=== PATIENT | male | born 1970 | race Caucasian/White ===

== ENCOUNTER 2025-08-03 12:20 | Emergency (ER) | payer OTHER, SELFPAY ==
[2025-08-03 12:22] VITALS: BP 198/101; PULSE 96; RESP 16; TEMP 36.8; O2SAT 97; BMI 35.7
--- NOTE | 2025-08-03 12:33 | EKG12_ITS ---
Test Reason : DIZZINESS Blood Pressure : */* mmHG Vent. Rate : 82 BPM Atrial Rate : 82 BPM P-R Int : 168 ms QRS Dur : 116 ms QT Int : 378 ms P-R-T Axes : 23 -42 37 degrees QTcB Int : 441 ms Normal sinus rhythm Left axis deviation Minimal voltage criteria for LVH, may be normal variant ( Meliton product ) Abnormal ECG Confirmed by NAIMA HU, NIYA ([id number]), state editor KATJA OSULLIVAN ([id number]) on 08/05/2025 10:31:59 AM Referred By: RENY Confirmed By: NIYA MCNAMARA MD
--- NOTE | 2025-08-03 12:35 | EX.ED.DYSGE1 ---
HPI History of Present Illness Chief Complaint: Dizziness Detail of Chief Complaint: Neck pain and dizziness Informant: patient Narrative Narrative: Patient presents to the emergency department complaining neck pain and dizziness that started about an hour ago. Patient states that he was at work and had just had lunch. He is speaking with somebody when he had sudden onset of pain in his left neck and trapezius area then he became lightheaded and flushed. Stated that he did not feel well. He did not have a syncopal episode. Pain is more achy currently. Lightheadedness is better. Patient was noted to be hypertensive on EMS arrival and states normally his blood pressure is 190/130 but he was over 200 systolic. Patient is on blood pressure medicine but he does not know the name of it. He denies chest pain or palpitations. PFSH PFSH Allergy/AdvReac Type Severity Reaction Status Date / Time meperidine (From Demerol) AdvReac VOMITING Verified 08/03/25 12:26 Social History Smoking Status: Never smoker ROS ROS ED ROS Narrative Lightheadedness Review of Systems ROS Unobtainable: other Constitutional Constitutional ED: Reports lethargy; Denies chills, fever(s), sweats or weight loss Eyes Eyes: Denies blurry vision, change in vision or diplopia ENT ENT ED: Denies rhinorrhea or sore throat Cardiovascular Cardiovascular: Denies chest pain, orthopnea or racing heartbeat Respiratory/Chest Respiratory/Chest: Denies cough, dyspnea, dyspnea on exertion, orthopnea or sputum Gastrointestinal Gastrointestinal: Denies abdominal pain, diarrhea, nausea or vomiting Genitourinary Genitourinary ED: Denies dysuria, hematuria or urinary frequency Musculoskeletal Musculoskeletal: Reports neck pain; Denies arthralgias, back pain or myalgias Integumentary Denies abscess, Abrasions or rash Neurologic Neurologic: Denies headache(s) or weakness Psychiatric Psychiatric: Denies anxiety, depression or suicidal thoughts Endocrine Endocrinology: Denies polydipsia, polyphagia or polyuria Hematologic/Lymphatic Hematologic/Lymphatic: Denies easy bleeding, easy bruising or lymphadenopathy Allergic/Immunologic Allergic/Immunologic ED: Denies mouth swelling, tongue swelling or urticaria EXAM Physical Exam Const Vital Signs: 08/03/25 12:22 08/03/25 13:27 Temperature 98.3 F Temperature Source Oral Pulse Rate 96 92 Respiratory Rate 16 14 Blood Pressure 198/101 H 152/92 H Blood Pressure Mean 133 112 Pulse Ox 97 95 Oxygen Delivery Method Room Air Room Air Positive well nourished and well developed General Appearance ED: well developed and NAD HEENT Reports TM's clear and moist mucous membranes normocephalic and atraumatic; Negative for trauma or tenderness Tympanic Membrane ED: Yes TM's clear Eyes PERRL and EOMs intact bilaterally General Eye ED: Negative for pale conjunctiva or scleral icterus Neck no lymphadenopathy, supple and no JVD General: Negative for tenderness Chest Wall inspection of chest normal and palpation of chest normal Chest: Negative for tenderness Resp normal respiratory effort and clear to auscultation bilaterally Effort and Inspection: Negative for respiratory distress or pain with movement Auscultation: Negative for rhonchi, wheezes or diminished lung sounds Cardio regular rate, regular rhythm, S1 normal heart sound, S2 normal heart sound and no murmurs Peripheral Pulses: pulses 2+ throughout GI normal to inspection, nondistended, normoactive bowel sounds, soft to palpation, non-tender, non-distended and no masses Back/Spine no CVA tenderness and no thoracic nor lumbar tenderness Extremity normal to inspection General Extremety ED: Negative for edema General Extremity: Negative for edema Neuro oriented x3, CN's II-XII intact bilaterally, no sensory deficits noted and gait normal Neuro Narrative: Finger-nose and [id number] testing within normal limits, negative Romberg, negative for drift, fundi benign Sensorium / Orientation: awake, alert, oriented to person, oriented to place and oriented to time Motor Exam: strength 5/5 throughout and strength abnormal Psych mental status grossly normal Skin no rashes or lesions noted and no wounds MDM MDM MDM Narrative Medical decision making narrative: Patient presents with sudden onset of neck pain and lightheadedness. Noted to be markedly hypertensive. Will obtain EKG and labs. Will obtain CT brain as well as CTA of head and neck to rule out aneurysm or dissection or other acute process. CBC with differential obtained showed a white count of 5.6 with hemoglobin 14.5 and platelet count of 176. Chemistries unremarkable. Troponin normal at 13. CT scan of the brain without contrast unremarkable. CTA of head and neck was normal. While in the department he did receive labetalol and this did bring his blood pressure down to 152/92. Clinically he feels well other than just some mild achy discomfort in his left trapezius which seems reproducible with palpation. At this point I do not think he is having acute coronary syndrome or anginal equivalent. He will be discharged to home and advised to keep a journal of his blood pressures over the next week and follow-up with his primary care physician within the next 5 to 7 days. Advised to return if chest pain, exertional symptoms, or condition should worsen anyway Lab Data Attestation: I reviewed the patient's lab results. Labs: Laboratory Results - last 24 hr 08/03/25 12:53 WBC 5.6 RBC 4.62 Hgb 14.5 Hct 40.7 MCV 88.1 MCH 31.4 MCHC 35.6 RDW Std Deviation 41.5 RDW Coeff of Celsa 12.8 Plt Count 176 MPV 9.5 Immature Gran % (Auto) 0.500 Neut % (Auto) 63.3 Lymph % (Auto) 24.7 Clarke % (Auto) 7.7 Eos % (Auto) 2.5 Baso % (Auto) 1.3 H Absolute Neuts (auto) 3.5 Absolute Lymphs (auto) 1.38 Nucleated RBC % 0 Sodium 142 Potassium 3.8 Chloride 107 Carbon Dioxide 22.7 Anion Gap 12 BUN 13 Creatinine 0.86 Estim Creat Clear Calc 135.50 Est GFR (MDRD) Non-Af 102 BUN/Creatinine Ratio 15.0 Glucose 132 H Calcium 9.0 Troponin T High Sens 13 Radiography Diagnostic Testing: Clinical Impression(s) from Imaging Studies Brain CT 08/03/25 13:07 IMPRESSION: NO ACUTE FINDINGS Reading Location: [facility] Head/Neck CTA 08/03/25 13:07 IMPRESSION: No abnormality is seen. Reading Location: [facility] EKG Initial EKG: Attestation: I personally reviewed and interpreted this EKG as follows: Comments: Sinus rhythm with rate of 82 bpm with voltage criteria for LVH Discharge Plan Triage Chief Complaint: Dizziness ED Provider: Arjun Covarrubias Dx/Rx/DC Orders Clinical Impression: Neck pain, Dizziness, Hypertension Instructions: ED Dizziness, Uncertain Cause, ED Hypertension, Established, ED Neck Pain [facility] [facility] [Primary Care Provider, None] - 5-7 Days Print Language: Kazakh Disposition Disposition: Home, Self Care
[2025-08-03 13:01] LABS: Hematocrit 40.7 % (40-54); Hemoglobin 14.5 g/dL (13.0-16.5); Immature Granulocytes Count 0.030 X10^3/uL (0.0-0.0); Mean Corp Hgb Conc 35.6 g/dL (32-36); Mean Corpuscular Volume 88.1 fL (80-94); Mean Platelet Vol. 9.5 fl (6.2-12.0); NRBC Flagged by Analyzer 0 % (0-5); Platelet Count 176 K/mm3 (150-450); RBC Distribution Width CV 12.8 % (11.6-14.6); RBC Distribution Width SD 41.5 fl (35.1-43.9); Red Blood Count 4.62 M/mm3 (4.6-6.2); White Blood Count 5.6 K/mm3 (4.4-11.0)
--- NOTE | 2025-08-03 13:07 | CT_ITS ---
PROCEDURE: BRAIN/HEAD WITHOUT CONTRAST 08/03/2025 REASON FOR EXAM: NECK PAIN, DIZZINESS, HTN TECHNIQUE: Procedure Code: CTBR Modality: CT Procedure: BRAIN/HEAD WITHOUT CONTRAST Coronal and Sagittal reconstruction series were provided. One or more dose reduction techniques were used (e.g., Automated exposure control, adjustment of the mA and/or kV according to patient size, use of iterative reconstruction technique. RADIATION DOSE SUMMARY: CTDlvol: 44.99 mGy DLP: 846.73 mGycm COMPARISON: None FINDINGS: Brain: Normal CSF Spaces: Normal Sinuses/Mastoids: Clear at visualized levels Bones: Unremarkable CT/Brain/Head without Contrast IMPRESSION: NO ACUTE FINDINGS Reading Location: [place] [id number]
--- NOTE | 2025-08-03 13:07 | CT_ITS ---
PROCEDURE: CTA HEAD AND NECK W/ CONTRAST 08/03/2025 REASON FOR EXAM: HTN, PAIN NECK, DIZZINESS TECHNIQUE: Procedure Code: CTCTA.HDNCK Modality: CT Procedure: CTA HEAD AND NECK W/ CONTRAST Multiplanar Sagittal and Coronal images were obtained. 3D post processing was performed CONTRAST: Isovue 370 VOLUME: 95 mL One or more dose reduction techniques were used (e.g., Automated exposure control, adjustment of the mA and/or kV according to patient size, use of iterative reconstruction technique). RADIATION DOSE SUMMARY: CTDlvol: 22.6 mGy DLP: 827.57 mGycm COMPARISON: Prior CT scan of the brain done earlier in the day. FINDINGS: Aortic Arch: Minimal atherosclerotic plaque of the aortic arch. Brachiocephalic and Subclavians: Unremarkable RIGHT Carotid: Right CCA: Unremarkable. Right ICA: Unremarkable. Maximum stenosis (NASCET): 0 % Right ECA: Unremarkable. LEFT Carotid: Left CCA: Unremarkable. Left ICA: Unremarkable. Maximum stenosis (NASCET): 0 % Left ECA: Unremarkable. Vertebrals: RIGHT Vertebral: Unremarkable.. Dominant right vertebral artery. LEFT Vertebral: Unremarkable. Anatomy: [place] of Bone anatomy is normal. Aneurysm or avm: No intracranial aneurysms or large vascular malformations are identified. Anterior cerebral arteries: Nonvisualization of the right A1 branch of the anterior cerebral artery. This is a normal variant. Middle cerebral arteries: Unremarkable. Basilar artery: Unremarkable. Posterior cerebral arteries: Unremarkable. Other major branches of the posterior circulation: Unremarkable. Major venous structures: Unremarkable. Other findings: Neck: Lungs: Bones: CT/CTA Head AND Neck W/ Contrast IMPRESSION: No abnormality is seen. Reading Location: [place] [id number]
[2025-08-03 13:23] LABS: Anion Gap 12 (5-15); BUN 13 mg/dL (4-19); BUN/Creat Ratio 15.0 RATIO (10-20); Calcium,Total 9.0 mg/dL (7.6-11.0); Carbon Dioxide 22.7 mmol/L (21.0-32.0); Chloride 107 mmol/L (98-108); Estimated Creatinine Clearance 135.50 ml/min (50-250); Glucose 132 mg/dL (70-99); Potassium 3.8 mmol/L (3.3-5.1); Troponin T High Sensitivity 13 ng/L (<=22)
[2025-08-03 13:27] VITALS: BP 152/92; PULSE 92; RESP 14; O2SAT 95
[2025-08-03 14:16] VITALS: BP 163/91; PULSE 87; RESP 16; TEMP 36.3; O2SAT 99
--- NOTE | 2025-08-03 14:16 | ED.RN ---
pt unsure of his home meds, first time visit here.
== END 2025-08-03 14:30 | disposition home or self-care (01) ==
PROVIDERS: Emergency Provider Emergency Medicine; Visit Provider Emergency Medicine
DX: R42 Dizziness and giddiness (principal); M54.2 Cervicalgia; I10 Essential (primary) hypertension
CPT/HCPCS: 70450; 70496; 70498; 80048; 84484; 85025; 93005; 99285; Q9967; A4216